=== PATIENT | female | born 1980 | race Caucasian/White ===

== ENCOUNTER 2018-01-12 16:19 | Emergency (ER) | payer MEDICAID ==
[2018-01-12] MEDS: ACETAMINOPHEN 325 MG TAB PO (18:10)
[2018-01-12] MEDS: predniSONE 20 MG TAB PO (18:11)
== END 2018-01-12 18:15 | disposition home or self-care (01) ==
LOC: FTE 16:19
DX: J02.9 Acute pharyngitis, unspecified (principal); J06.9 Acute upper respiratory infection, unspecified
CPT/HCPCS: 99283; J7512